=== PATIENT | female | born 1995 | race Caucasian/White ===

== ENCOUNTER 2019-02-20 20:16 | Emergency (ER) | payer OTHER ==
[~2019-02-20] VITALS: Ht 165.1 cm; Wt 62.5 kg
[2019-02-20] MEDS ORDERED: KETOROLAC 60MG/2ML VIAL IM ONE (21:45)
[2019-02-20] MEDS ORDERED: CYCLOBENZAPRINE 10MG TABLET PO ONE (21:45)
[2019-02-20 22:21] VITALS: BP 107/66
== END 2019-02-20 22:24 | disposition home or self-care (01) ==
LOC: ER 20:16
DX: M79.18 Myalgia, other site (principal); J45.909 Unspecified asthma, uncomplicated; V49.40XA Driver injured in collision with unspecified motor vehicles in traffic accident, initial encounter; Y93.9 Activity, unspecified; Y92.410 Unspecified street and highway as the place of occurrence of the external cause
CPT/HCPCS: 81025; 96372; 99283; J1885